=== PATIENT | male | born 1945 | race Caucasian/White ===

== ENCOUNTER 2020-05-31 21:26 | IRF | payer MEDICARE, SELFPAY ==
--- NOTE | ~2020-05-31 | XR_ITS ---
EXAMINATION: 1. XR ankle RT 2V 2. XR heel RT min 2V DATE: 06/04/2020 14:19 INDICATION: Right heel and ankle pain. TECHNIQUE: 2 views of right ankle and 2 views of right calcaneus were obtained. COMPARISON: None. FINDINGS: RIGHT ANKLE: Bone alignment is normal. No acute fracture. There is a fragment of well corticated ossi fication distal to lateral malleolus. There is ankylosis of the tibiotalar joint. There is bridging b one at the distal tibiofibular syndesmosis. There is an old screw tract in the calcaneus. There is mi ld midfoot osteoarthritis. There is mild subtalar joint osteoarthritis. There are enthesophytes at th e posterior and plantar aspects of calcaneal tuberosity. RIGHT CALCANEUS: Again seen is the mild polyarticular osteoarthritis. There is no fracture. There is no evidence of osteomyelitis. IMPRESSION: 1. Mild polyarticular osteoarthritis. 2. Ankylosis of the tibiotalar joint. Bridging bone at the distal tibiofibular syndesmosis. Reviewed, dictated and finalized at location B. ENTARY SCHOOL PROFESSIONAL IMPRESSION: 1. Mild polyarticular osteoarthritis. 2. Ankylosis of the tibiotalar joint. Bridging bone at the distal tibiofibular syndesmosis.
--- NOTE | 2020-05-31 19:07 | ADMGEN ---
This patient, Javier Collins, [facility]. Patient/family oriented to hospital policies and general routines including ID bracelet, bed and alarms, visiting hours, pain management, procedures, bathroom and other care routines, personal items, smoking policy, room service/diet, and visiting hours. Information on how to activate the Rapid Response Team has been discussed. Patient/Family are encouraged to report perceived risks to care and to ask questions if they do not understand what they are told or what they should do. Patient arrived at 1850. transported via [facility], per EMS he was stable on the ride. Patient is alert and oriented, incontinent of stool upon arrival
[2020-05-31 19:27] VITALS: BP 132/65; PULSE 103; RESP 20; TEMP 36.6; O2SAT 94
[2020-05-31 19:28] VITALS: BMI 31.8
[2020-05-31 22:00] VITALS: BP 140/60; PULSE 100; RESP 18; TEMP 36.7; O2SAT 95
[2020-05-31] MEDS: CARBIDOPA/LEVODOPA 25/100 MG TABLET 2 TABLET PO (22:42)
[2020-05-31] MEDS: APIXABAN 5 MG TABLET PO (22:42)
[2020-05-31] MEDS: PRAVASTATIN SODIUM 20 MG TABLET PO (22:43)
[2020-05-31] MEDS: PRAMIPEXOLE 0.5 MG TABLET PO (22:47)
[2020-05-31] MEDS: DONEPEZIL HCL 10 MG TABLET PO (22:48)
[2020-05-31] MEDS: PRAMIPEXOLE 0.25 MG TABLET PO (22:48)
[2020-06-01] MEDS: ACETAMINOPHEN 500 MG TABLET 1000 MG PO ×3 (01:01→15:34)
[2020-06-01 04:57] LABS: Basophils Percent Auto 0.3 % (0.2-1.2); Eosinophils Absolute Auto 0.1 K/mm3 (0-0.3); Eosinophils Percent Auto 1.1 % (0-4.4); Hematocrit 26.5 % (42.0-52.0); Hemoglobin 8.4 g/dL (14.0-18.0); Immature Granulocyte Absolute 0.05 K/mm3 (0.00-0.031); Immature Granulocyte Percent A 0.7 % (0-0.5); Lymphocytes Absolute Auto 1.13 K/mm3 (0.9-3.2); Lymphocytes Percent Auto 16.2 % (18.3-44.2); Mean Corpuscular HGB Conc 31.7 g/dl (32-36); Mean Corpuscular Hemoglobin 30.8 pg (26-34); Mean Corpuscular Volume 97.1 fl (80-100); Monocytes Absolute Auto 0.7 K/mm3 (0.1-0.6); Monocytes Percent Auto 10.5 % (2.6-8.5); Neutrophils Percent Auto 71.2 % (45.5-73.1); Nucleated Red Blood Cells Perc 0.3 % (0.0-0.2); Platelet Count Result 206 k/mm3 (150-375); Red Blood Count 2.73 M/mm3 (4.6-6.20); Red Cell Distribution Width 14.2 % (11.5-14.5)
[2020-06-01 05:15] LABS: Anion Gap 4 mmol/L (8-16); Blood Urea Nitrogen 20 mg/dL (9-20); Calcium 8.5 mg/dL (8.4-10.2); Carbon Dioxide 33 mmol/L (22-30); Chloride 102 mmol/L (98-107); Estimated CRCL calculation 67 ml/min; Estimated Glomerular Filt Rate > 60; Glucose 86 mg/dL (75-110); Potassium 3.5 mmol/L (3.4-5.0); Sodium 139 mmol/L (137-145)
[2020-06-01 05:51] VITALS: PULSE 75; RESP 16; TEMP 36.3; O2SAT 95
[2020-06-01] MEDS: PROPRANOLOL HCL 60 MG CAPSULE CR 120 MG PO (09:06)
[2020-06-01] MEDS: CARBIDOPA/LEVODOPA 25/100 MG TABLET 2 TABLET PO ×3 (09:07→17:34)
[2020-06-01] MEDS: PARoxetine 20 MG TABLET 40 MG PO (09:08)
[2020-06-01] MEDS: APIXABAN 5 MG TABLET PO ×2 (09:08→17:34)
[2020-06-01] MEDS: buPROPion HCL XL (24 HR) 150 MG TABCR 300 MG PO (09:09)
[2020-06-01] MEDS: lamoTRIgine 100 MG TABLET 200 MG PO (09:10)
[2020-06-01] MEDS: SOLIFENACIN 5 MG TABLET 10 MG PO (09:10)
[2020-06-01] MEDS: CHOLECALCIFEROL 1,000 UNITS TABLET 5000 UNITS PO (09:11)
[2020-06-01] MEDS: polyethylene glycoL 3350 17 GM POWD.PACK PO (09:12)
[2020-06-01] MEDS: modafiniL (*CRX) 100 MG TABLET PO (09:24)
--- NOTE | 2020-06-01 10:22 | WPDREHABHP ---
H&P: HPI History of Present Illness Date/Time: 06/01/20 10:22 Chief complaint: ORIF left leg Narrative: Javier Collins is a 75 year old male HISTORY OF PRESENT ILLNESS: The patient's primary rehab impairment category is Orthopedic that is lower extremity fracture I saw this patient [id number] on June 01, 2020 at 10:00 a.m. The patient is a 75 years old right-handed male with a past medical history of anxiety, arthritis, atrial fibrillation on Eliquis, Parkinson disease, ataxic gait, urinary incontinence and bilateral total knee arthroplasties who presented to [facility] on May 24, 2020 following a mechanical single level fall. The patient reports that he tripped over the vacuum cord and landed on his left knee. The patient initially received imaging at [facility], which demonstrated a left distal femur fracture and the patient was transferred to [facility] for definitive care and medical management . at [facility] Emergency room a CT scan of the left knee revealed a mildly displaced and angulated left distal femur shaft fracture, fracture line in close proximity to the anterior superior margin of the left knee arthroplasty. Head CT scan revealed no acute intracranial hemorrhage or fractures. Orthopedic Trauma surgery was consulted and the patient underwent surgical intervention of a a retrograde intramedullary femur nailing and an ORIF of distal femur on May 24, 2020. The patient required transfusion of 3units packed RBCs intraoperatively and was started on meds,had 1L bolus, 1unit of packed RBCs with no affect on blood pressure on 05/27 ECho showed EF 55 to 60% ,on 05/27, the patient was taken off the drip and on 05/28 the patient hemoglobin dropped to 7.1 from 8.9. He was again given 1unit of packed RBCs the patient blood pressure has remained stable since 05/28 with no bolus or blood products required. He is hemodynamically stable. Patient is awake alert oriented x3 he He is weight-bearing at touch toe to left lower extremity. [place] and sutures to be removed 3 weeks postoperatively at the rehab facility or as an outpatient. He will discharged to [facility] on Eliquis for long-term atrial fibrillation. He is also on Rocephin IV until 06/01. Follow-up is scheduled with Dr. Claudio on July 06, 2019 COVID: the patient has not traveled outside the [place] or had contact with someone who is ill that has traveled outside the [place] in the past 21 days the patient has not traveled to an area of the [place] that is experiencing known transmission of the Coronavirus and has not had close personal contact with anyone that has the patient does not have a fever the patient is not experiencing lower respiratory illness symptom patient does however has asthma at baseline. Therapy was initiated the acute care facility and the patient was transferred to us from [facility] on May 31, 2020 FALLS OR SURGERIES: the patient has had major surgery in the last 100 days( ORIF and IM nailing of left distal femur on May 24, 2020) the patient has had falls in the past year. The patient has had falls with injury in the past year. PAST MEDICAL HISTORY: anxiety, arthritis, asthma, ataxic gait, atrial fibrillation, depression, thyroid disease, back injury, hypertension, hyperlipidemia, hypothyroidism, overactive bladder, urinary incontinence, Parkinson disease, mild tremors, right lower extremity fracture, right ankle fracture, lumbar disc rupture, non rheumatic aortic valve stenosis, REM sleep behavior disorder, CVA, and DVT. PAST SURGICAL HISTORY: Bilateral total knee arthroplasties, right ankle surgery, cholecystectomy, and lumbar disc rupture with surgical repair SOCIAL HISTORY: the patient lives with spouse in a one-story home with 2 steps to enter. He was independent in all ADLS, IADLS, and mobility with a walker. The patient is a former smoker approximately 40 ye
[2020-06-01 12:35] VITALS: BMI 31.8
[2020-06-01 14:00] VITALS: BP 126/64; PULSE 77; RESP 22; TEMP 36; O2SAT 98
--- NOTE | 2020-06-01 15:50 | PCPTNOTE ---
Javier Rubi Collins was evaluated for a wheeled walker on 06/01/2020 by this physical therapist internal medicine physician assistant. The wheeled walker will resolve patient's mobility limitations and will be used for ADL's within the home. The patient can safely use the wheeled walker. ?The wheeled walker will resolve the patient?s mobility deficits, including impaired balance, decreased endurance and strength..
--- NOTE | 2020-06-01 15:51 | PCPTNOTE ---
Breonna Reinoso PTA completed an inpatient rehab wheelchair evaluation on Javier Collins on 06/01/2020. The patient is unable to safely and independently ambulate household distances due to their current impairments. Their diagnosis is ORIF left leg and their impairments include decreased strength, decreased endurance, decreased range of motion, decreased balance, lower extremity weakness, and ataxia. Javier's weight bearing status is weight-bearing as tolerated on the bilateral lower legs. The patient demonstrates significant functional mobility limitations that impair their ability to participate in mobility-related activities of daily living (MRADLs), including toileting, feeding, dressing, grooming, and bathing in the customary locations in the home. These limitations cannot be sufficiently resolved by the use of an appropriately fitted cane or walker. It is recommended that the patient utilize a wheelchair for functional mobility within the home in order to facilitate optimal safety, independence and participation in all MRADL's and adequately access their home environment on a regular basis. The patient's home provides adequate access between rooms, maneuvering space, and surfaces to accommodate the recommended wheelchair. The use of a wheelchair for functional mobility is strongly recommended and the patient is receptive to using the wheelchair. The use of this wheelchair will significantly improve the patient's ability to participate in MRADLS and the patient will use it on a regular basis in the home. This will facilitate optimal safety, independence, and participation. The patient has demonstrated sufficient physical and mental capabilities needed to safely propel a manual wheelchair that is provided in the home during a typical day. Recommended Wheelchair Frame: 20x18 Recommended Wheelchair Size: standard Recommended Wheelchair Cushion:standard Wheelchair Leg Recommendations: bilateral elevating leg rests - Elevating legrests are recommended because the patient has significant edema of the lower extremities that requires an elevating legrest. - Anti-tippers are recommended due to patient demonstrating increased risk for falls. They would benefit from anti-tippers with added safety and stabilization. Breonna Reinoso [employer]ANT OPERATOR 06-01-2020 Evaluating Therapist Date I agree with and certify that the above recommendation is medically necessary. Referring Physician Date I agree with and certify that the above recommendation is medically necessary. Referring Physician Date
[2020-06-01 20:09] VITALS: BP 107/51; PULSE 74; RESP 18; TEMP 35.9; O2SAT 99
[2020-06-01] MEDS: DONEPEZIL HCL 10 MG TABLET PO (20:58)
[2020-06-01] MEDS: SENNA/DOCUSATE SODIUM TABLET 1 TAB PO (20:58)
[2020-06-01] MEDS: PRAMIPEXOLE 0.5 MG TABLET PO (20:59)
[2020-06-01] MEDS: PRAVASTATIN SODIUM 20 MG TABLET PO (21:00)
[2020-06-01] MEDS: PRAMIPEXOLE 0.25 MG TABLET PO (21:00)
[2020-06-02] MEDS: ACETAMINOPHEN 500 MG TABLET 1000 MG PO ×4 (00:15→17:14)
[2020-06-02 05:46] VITALS: BP 121/64; PULSE 80; RESP 18; TEMP 36.2; O2SAT 94
[2020-06-02] MEDS: LEVOTHYROXINE SODIUM 50 MCG TABLET PO (05:57)
[2020-06-02] MEDS: SOLIFENACIN 5 MG TABLET 10 MG PO (09:04)
[2020-06-02] MEDS: PROPRANOLOL HCL 60 MG CAPSULE CR 120 MG PO (09:04)
[2020-06-02] MEDS: lamoTRIgine 100 MG TABLET 200 MG PO (09:04)
[2020-06-02] MEDS: CHOLECALCIFEROL 1,000 UNITS TABLET 5000 UNITS PO (09:04)
[2020-06-02] MEDS: APIXABAN 5 MG TABLET PO ×2 (09:05→17:14)
[2020-06-02] MEDS: buPROPion HCL XL (24 HR) 150 MG TABCR 300 MG PO (09:05)
[2020-06-02] MEDS: CARBIDOPA/LEVODOPA 25/100 MG TABLET 2 TABLET PO ×3 (09:05→17:14)
[2020-06-02] MEDS: PARoxetine 20 MG TABLET 40 MG PO (09:05)
[2020-06-02] MEDS: modafiniL (*CRX) 100 MG TABLET PO (09:25)
--- NOTE | 2020-06-02 11:58 | RPD ---
INDIVIDUALIZED PLAN OF CARE FOR Javier Collins Brief Synthesis of Pre-Admission Screen, Post-Admission Evaluation and Therapy Evaluations: The patient presents to rehab with a displaced and angulated extra-articular left distal femoral metadiaphyseal fracture s/p left ORIF and retrograde left intramedullary femur nailing. Comorbidities include associated left knee joint effusion, anxiety, arthritis, asthma, ataxic gait, atrial fibrillation, mild tremors, hypertension, hyperlipidemia, hypothyroidism, overactive bladder, urinary incontinence, nonrheumatic aortic valve stenosis, REM sleep behavior disorder, and Parkinson's disease. The complexity of the patient's medical management, nursing, and therapy needs require an inpatient rehab hospital stay with a physician-led interdisciplinary team approach. The patient?s needs will be best met in an intensive program vs. at a lower level of care. The patient requires physician services for medical oversight, management of postop complications in setting of present comorbidities, and pain management. He will be followed at least three times a week by the rehabilitation physician. The patient requires nursing services for DVT prophylactics, infection protection, medication management and education, pressure relief, and wound care. Deficits include:ADLs, Balance, Cognition, Endurance, Family Training/Education, Mobility, Pain Management, ROM, Safety, Strength, Transfers Brim Rounder/Case Management for: Discharge Planning and Patient/Family Counseling Physical Therapy: 5 days per week for 90 minutes. Treatments may include: Therapeutic Exercise, Gait Training, Neuromuscular Re-education, Transfer Training, Community Reintegration, Bed Mobility, Patient/Family Education, Wheelchair Mobility Group Therapy/Concurrent Therapy Rationales: -Improve attention span during functional activities in a distracted environment. -Enhance problem solving and/or adequate judgment skills during functional activities in a distracted environment. -Promote increased safety awareness in a distracted environment to reduce fall risk with functional tasks, transfers, and ambulation to allow a more safe, self-sufficient return to the home environment. -Improve dynamic balance skills to promote safety and independence with functional activities in a distracted environment for maximum gain. Occupational Therapy: 5 days per week for 90 minutes. Treatments may include: Therapeutic Exercise, Therapeutic Activity, Cognitive Training, Self-Care Transfer Training, Community Reintegration, Home Management, Patient/Family Education, Wheelchair Mobility Training, Energy Conservation Training Group Therapy/Concurrent Therapy Rationales: -Allow therapist to observe and teach generalization and carry-over of skills learned in individual therapy. -Enhance problem solving and sequencing skills during therapeutic activities in a distracted environment. -Promote increased safety awareness in a realistic setting to reduce fall risk with functional tasks due to visual and verbal distractions. -Increase functional level with ADLs, ADL transfers and use of adaptive equipment through therapeutic activities with others while promoting safety to allow a more safe, self-sufficient return home. Medical Prognosis: Good Anticipated Length of Stay: 10 days Rehab Goals: Eating Goal: 06-Independent Oral Hygiene Goal: 06-Independent Toileting Hygiene Goal: 04-Supervision or Touching Assistance Shower/Bathe Self Goal: 04-Supervision or Touching Assistance Upper Body Dressing Goal: 04-Supervision or Touching Assistance Lower Body Dressing Goal: 04-Supervision or Touching Assistance Putting On/Taking Off Footwear Goal: 04-Supervision or Touching Assistance Rolling Left and Right Goal: 06-Independent Sit to Lying Goal: 06-Independent Lying to Sitting on Side of Bed Goal: 06-Independent Sit to Stand Goal: 04-Supervision or Touching Assistance Chair/Bru-hz-Csrom Transfer Phoebe
--- NOTE | 2020-06-02 13:49 | PC.NURSE ---
complaints of left knee pain at old surgical site, reports pain assessment 4 out of 10. provided ice pack to left knee
[2020-06-02 14:00] VITALS: BP 105/60; PULSE 81; RESP 16; TEMP 36; O2SAT 95
[2020-06-02 19:48] VITALS: BP 90/54; PULSE 84; RESP 20; TEMP 36.7; O2SAT 96
[2020-06-02 19:55] VITALS: BP 102/58
[2020-06-02] MEDS: DONEPEZIL HCL 10 MG TABLET PO (19:59)
[2020-06-02] MEDS: PRAMIPEXOLE 0.5 MG TABLET PO (19:59)
[2020-06-02] MEDS: PRAMIPEXOLE 0.25 MG TABLET PO (20:00)
[2020-06-02] MEDS: PRAVASTATIN SODIUM 20 MG TABLET PO (20:00)
[2020-06-03 06:03] VITALS: BP 124/52; PULSE 69; RESP 16; TEMP 36.7; O2SAT 95
[2020-06-03] MEDS: LEVOTHYROXINE SODIUM 50 MCG TABLET PO (06:05)
[2020-06-03] MEDS: ACETAMINOPHEN 500 MG TABLET 1000 MG PO ×3 (06:05→17:27)
[2020-06-03 08:00] VITALS: PULSE 69; RESP 16; O2SAT 95
[2020-06-03] MEDS: CARBIDOPA/LEVODOPA 25/100 MG TABLET 2 TABLET PO ×3 (09:27→17:28)
[2020-06-03 09:28] VITALS: PULSE 69
[2020-06-03] MEDS: PROPRANOLOL HCL 60 MG CAPSULE CR 120 MG PO (09:28)
[2020-06-03] MEDS: APIXABAN 5 MG TABLET PO ×2 (09:28→17:28)
[2020-06-03] MEDS: CHOLECALCIFEROL 1,000 UNITS TABLET 5000 UNITS PO (09:28)
[2020-06-03] MEDS: PARoxetine 20 MG TABLET 40 MG PO (09:28)
[2020-06-03] MEDS: SOLIFENACIN 5 MG TABLET 10 MG PO (09:28)
[2020-06-03] MEDS: buPROPion HCL XL (24 HR) 150 MG TABCR 300 MG PO (09:29)
[2020-06-03] MEDS: lamoTRIgine 100 MG TABLET 200 MG PO (09:29)
[2020-06-03] MEDS: polyethylene glycoL 3350 17 GM POWD.PACK PO (09:29)
[2020-06-03] MEDS: modafiniL (*CRX) 100 MG TABLET PO (09:34)
--- NOTE | 2020-06-03 10:04 | PC.NURSE ---
0900---Attempted to give patient his 0900 meds and patient did not want to take meds at this time. Will try again later.
[2020-06-03 14:00] VITALS: BP 130/57; PULSE 74; RESP 18; TEMP 36.2; O2SAT 97
[2020-06-03] MEDS: DONEPEZIL HCL 10 MG TABLET PO (20:32)
[2020-06-03] MEDS: PRAMIPEXOLE 0.25 MG TABLET PO (20:32)
[2020-06-03] MEDS: PRAVASTATIN SODIUM 20 MG TABLET PO (20:32)
[2020-06-03] MEDS: PRAMIPEXOLE 0.5 MG TABLET PO (20:33)
[2020-06-03 22:00] VITALS: BP 100/46; PULSE 76; RESP 18; TEMP 36.9; O2SAT 96
[2020-06-04] MEDS: ACETAMINOPHEN 500 MG TABLET 1000 MG PO ×3 (05:56→17:35)
[2020-06-04] MEDS: LEVOTHYROXINE SODIUM 50 MCG TABLET PO (05:57)
[2020-06-04 06:00] VITALS: BP 131/72; PULSE 77; RESP 20; TEMP 36.6; O2SAT 97
[2020-06-04] MEDS: SOLIFENACIN 5 MG TABLET 10 MG PO (09:23)
[2020-06-04] MEDS: PARoxetine 20 MG TABLET 40 MG PO (09:23)
[2020-06-04] MEDS: lamoTRIgine 100 MG TABLET 200 MG PO (09:23)
[2020-06-04] MEDS: CARBIDOPA/LEVODOPA 25/100 MG TABLET 2 TABLET PO ×3 (09:24→17:30)
[2020-06-04] MEDS: buPROPion HCL XL (24 HR) 150 MG TABCR 300 MG PO (09:24)
[2020-06-04] MEDS: APIXABAN 5 MG TABLET PO ×2 (09:24→17:35)
[2020-06-04] MEDS: CHOLECALCIFEROL 1,000 UNITS TABLET 5000 UNITS PO (09:24)
[2020-06-04] MEDS: PROPRANOLOL HCL 60 MG CAPSULE CR 120 MG PO (09:24)
[2020-06-04] MEDS: modafiniL (*CRX) 100 MG TABLET PO (09:51)
--- NOTE | 2020-06-04 10:45 | WPDNEURORHBP ---
Subjective Date/time seen: 06/04/20 10:45 75 years old with left knee displaced angulated left distal femur shaft fracture closer to the anterior superior margin of the left knee arthroplasty in addition to ongoing comorbid conditions of 1. Anxiety 2. Arthritis 3. Bronchial asthma 4. Atrial fibrillation 5. Hyper 6. Hypothyroidism 7. Bladder dysfunction 8. Parkinson's disease 9. Non rheumatic aortic valve stenosis and 10. REM sleep behavior disorder has been involved in a therapy has no specific complaints on today's visit Review of Systems Review of Systems: All systems reviewed & are unremarkable except as noted in HPI and below Functional Status Ambulation Ability Ability to Ambulate 10 Feet: Moderate Assistance X 1 Ambulation Assistive Devices: Walker, Wheeled Exam Narrative: Exam Narrative: continues to be awake alert in no obvious acute distress ear nose throat examination normal with normal mucous membranes neck is supple with no restriction of the range of motions heart is regular lungs without rhonchi abdomen is soft nontender and neuro examination unchanged he will be continue the treatment as such Objective Data Vital Signs Vital Signs: Vital Signs - 24 hr 06/03/20 14:00 06/03/20 22:00 06/04/20 06:00 Temperature 36.2 C L 36.9 C 36.6 C Pulse Rate 74 76 77 Respiratory Rate 18 18 20 Blood Pressure 130/57 L 100/46 L 131/72 Pulse Oximetry 97 96 97 Intake/Output Intake/Output: Intake & Output 06/01/20 06/02/20 06/03/20 06/04/20 23:59 23:59 23:59 23:59 Intake Total 450 580 240 240 Balance 450 580 240 240 Meds/Results Medications: Active Medications Generic Name Dose Route Start Last Admin Trade Name Ti PRN Reason Stop Dose Admin Acetaminophen 1,000 mg 06/01/20 18:00 06/04/20 05:56 Acetaminophen 500 Mg Tablet PO 1,000 mg Q6HR MILTON Administration Apixaban 5 mg 05/31/20 21:40 06/04/20 09:24 Apixaban 5 Mg Tablet PO 5 mg BID MILTON Administration Bupropion HCl 300 mg 06/01/20 09:00 06/04/20 09:24 Bupropion Hcl Xl (24 Hr) 150 Mg Tabcr PO 300 mg QAM MILTON Administration Carbidopa/Levodopa 2 tablet 05/31/20 21:40 06/04/20 09:24 Carbidopa/Levodopa 25/100 Mg Tablet PO 2 tablet TID MILTON Administration Donepezil HCl 10 mg 05/31/20 21:45 06/03/20 20:32 Donepezil Hcl 10 Mg Tablet PO 10 mg HS MILTON Administration Lamotrigine 200 mg 06/01/20 09:00 12 09:23 Lamotrigine 100 Mg Tablet PO 200 mg DAILY MILTON Administration Levothyroxine Sodium 50 mcg 06/01/20 06:30 06/04/20 05:57 Levothyroxine Sodium 50 Mcg Tablet PO 50 mcg DAILY@0630 MILTON Administration Modafinil 100 mg 06/01/20 09:00 12 09:51 Modafinil (*Crx) 100 Mg Tablet PO 100 mg QAM MILTON Administration Oxycodone HCl 1 mg 05/31/20 21:30 Oxycodone Hcl (*Crx) 5 Mg Tab Ir PO Q6H PRN Pain Rated 7-10 Paroxetine HCl 40 mg 06/01/20 09:00 06/04/20 09:23 Paroxetine 20 Mg Tablet PO 40 mg QAM [place] Administration Polyethylene Glycol 17 gm 06/04/20 10:37 Polyethylene Glycol 3350 17 Gm Powd.Pack PO DAILY PRN Constipation Pramipexole Dihydrochloride 0.5 mg 05/31/20 21:45 06/03/20 20:33 Pramipexole 0.5 Mg Tablet PO 0.5 mg HS MILTON Administration Pramipexole Dihydrochloride 0.25 mg 05/31/20 21:50 06/03/20 20:32 Pramipexole 0.25 Mg Tablet PO 0.25 mg HS MILTON Administration Pravastatin Sodium 20 mg 05/31/20 21:45 06/03/20 20:32 Pravastatin Sodium 20 Mg Tablet PO 20 mg HS MILTON Administration Propranolol HCl 120 mg 06/01/20 09:00 06/04/20 09:24 Propranolol Hcl 60 Mg Capsule Cr PO 120 mg DAILY MILTON Administration Senna/Docusate Sodium 1 tab 06/01/20 21:00 06/03/20 20:33 Senna/Docusate Sodium Tablet PO Not Given HS MILTON Solifenacin 10 mg 06/01/20 09:00 06/04/20 09:23 Solifenacin 5 Mg Tablet PO 10 mg QAM MILTON Administration Vitamin D 5,000 units 12/08/20 09:00 06/04/20 09:24 Leonora
--- NOTE | 2020-06-04 12:55 | PCDIET ---
Nutrition Follow-Up Complete: Nutrition Diagnosis: Suboptimal oral intake related to decreased appetite as evidenced by intake records. Nutrition Goal: Patient to consume 50% of meals and supplements or greater Goal in progress. Patient does report improving appetite, but intakes remain 50% or less at meals. Patient does report taking Ensure Enlive twice daily which provides additional 700kcal and 40g protein per day. Encouraged patient to continue to focus on protein and supplement intake. Recommend regular, unrestricted diet, as well, to potentially boost intake. Last recorded weight is 84.3 kg. Recommend obtaining new weight. Bowel Motility: +BM today. Labs Reviewed: No new labs available. Meds Noted: Sinemet, Synthroid, Pravastatin, Senna, Vitamin D Additional Notes: Dressing to left hip. No documented pressure sores. Will continue to monitor with same goal. Nutrition Monitoring and Evaluation: Follow up in 5 days.
[2020-06-04 14:00] VITALS: BP 110/46; PULSE 60; RESP 18; TEMP 36.1; O2SAT 97
[2020-06-04 20:45] VITALS: PULSE 73; RESP 18; O2SAT 97
[2020-06-04 21:02] VITALS: BP 113/57; PULSE 73; RESP 18; TEMP 36.3; O2SAT 97
[2020-06-04 21:04] VITALS: BP 113/57; PULSE 73; RESP 18; TEMP 36.3; O2SAT 97
[2020-06-04] MEDS: PRAMIPEXOLE 0.25 MG TABLET PO (21:08)
[2020-06-04] MEDS: PRAVASTATIN SODIUM 20 MG TABLET PO (21:08)
[2020-06-04] MEDS: DONEPEZIL HCL 10 MG TABLET PO (21:08)
[2020-06-04] MEDS: PRAMIPEXOLE 0.5 MG TABLET PO (21:08)
[2020-06-04] MEDS: SENNA/DOCUSATE SODIUM TABLET 1 TAB PO (21:08)
[2020-06-05] MEDS: ACETAMINOPHEN 500 MG TABLET 1000 MG PO ×4 (00:08→17:05)
[2020-06-05 05:31] VITALS: BP 117/66; PULSE 75; RESP 18; TEMP 36; O2SAT 96
[2020-06-05] MEDS: LEVOTHYROXINE SODIUM 50 MCG TABLET PO (05:36)
[2020-06-05] MEDS: APIXABAN 5 MG TABLET PO ×2 (10:01→17:05)
[2020-06-05] MEDS: CHOLECALCIFEROL 1,000 UNITS TABLET 5000 UNITS PO (10:01)
[2020-06-05] MEDS: CARBIDOPA/LEVODOPA 25/100 MG TABLET 2 TABLET PO ×3 (10:01→17:05)
[2020-06-05] MEDS: buPROPion HCL XL (24 HR) 150 MG TABCR 300 MG PO (10:02)
[2020-06-05] MEDS: lamoTRIgine 100 MG TABLET 200 MG PO (10:02)
[2020-06-05] MEDS: PARoxetine 20 MG TABLET 40 MG PO (10:03)
[2020-06-05] MEDS: SOLIFENACIN 5 MG TABLET 10 MG PO (10:03)
[2020-06-05 10:10] VITALS: PULSE 75
[2020-06-05] MEDS: modafiniL (*CRX) 100 MG TABLET PO (10:10)
[2020-06-05] MEDS: PROPRANOLOL HCL 60 MG CAPSULE CR 120 MG PO (10:10)
--- NOTE | 2020-06-05 12:23 | WPDNEUROPN ---
Progress Note: A&P Assessment and Plan (1) Anticoagulation therapy continued upon discharge: Code(s): Z79.01 - vermin exterminator (current) use of anticoagulants Status: Acute (2) Anemia: Code(s): D64.9 - Anemia, unspecified Status: Acute (3) Bladder dysfunction: Code(s): N31.9 - Neuromuscular dysfunction of bladder, unspecified Status: Acute (4) Ataxia: Code(s): R27.0 - Ataxia, unspecified Status: Acute (5) Parkinsons disease: Code(s): G20 - Parkinson's disease Status: Acute (6) Arthritis: Code(s): M19.90 - Unspecified osteoarthritis, unspecified site Status: Acute (7) Atrial fibrillation: Code(s): I48.91 - Unspecified atrial fibrillation Status: Acute (8) Anxiety: Code(s): F41.9 - Anxiety disorder, unspecified Status: Acute (9) Closed fracture of left distal femur: Code(s): S72.402A - Unspecified fracture of lower end of left femur, initial encounter for closed fracture Status: Acute Additional Plan stable will continue the treatment as such Review of Systems Review of Systems: All systems reviewed & are unremarkable except as noted in HPI and below Exam Narrative: Exam Narrative: examination today reveals him to be awake alert very cooperative and also communicative. His speech is not dysphasic not dysarthric. Follows instructions very well and interested in the rehab therapy the cranial examination is normal. Motor examination revealed him to have mild cogwheeling very subtle resting tremors but able to ambulate fairly well, heart regular with no murmur,. Lungs clear to auscultation with no rhonchi, or crepitation, abdomen is soft nontender. Objective Data Vital Signs Vital Signs: Vital Signs - 24 hr 06/04/20 14:00 06/04/20 20:45 06/04/20 21:02 Temperature 36.1 C L 36.3 C L Pulse Rate 60 73 73 Respiratory Rate 18 18 18 Blood Pressure 110/46 L 113/57 L Pulse Oximetry 97 97 97 06/04/20 21:04 06/05/20 05:31 06/05/20 10:10 Temperature 36.3 C L 36.0 C L Pulse Rate 73 75 75 Respiratory Rate 18 18 Blood Pressure 113/57 L 117/66 Pulse Oximetry 97 96 Intake/Output Intake/Output: Intake & Output 06/02/20 06/03/20 06/04/20 06/05/20 23:59 23:59 23:59 23:59 Intake Total 580 240 720 240 Balance 580 240 720 240 Meds/Results Medications: Active Medications Generic Name Dose Route Start Last Admin Trade Name Freq PRN Reason Stop Dose Admin Acetaminophen 1,000 mg 06/01/20 18:00 06/05/20 05:36 Acetaminophen 500 Mg Tablet PO 1,000 mg Q6HR [place] Administration Apixaban 5 mg 05/31/20 21:40 06/05/20 10:01 Apixaban 5 Mg Tablet PO 5 mg BID MILTON Administration Bupropion HCl 300 mg 06/01/20 09:00 06/05/20 10:02 Bupropion Hcl Xl (24 Hr) 150 Mg Tabcr PO 300 mg QAM [place] Administration Carbidopa/Levodopa 2 tablet 05/31/20 21:40 06/05/20 10:01 Carbidopa/Levodopa 25/100 Mg Tablet PO 2 tablet TID MILTON Administration Donepezil HCl 10 mg 05/31/20 21:45 06/04/20 21:08 Donepezil Hcl 10 Mg Tablet PO 10 mg HS MILTON Administration Lamotrigine 200 mg 06/01/20 09:00 06/05/20 10:02 Lamotrigine 100 Mg Tablet PO 200 mg DAILY MILTON Administration Levothyroxine Sodium 50 mcg 06/01/20 06:30 06/05/20 05:36 Levothyroxine Sodium 50 Mcg Tablet PO 50 mcg DAILY@0630 MILTON Administration Modafinil 100 mg 06/01/20 09:00 06/05/20 10:10 Modafinil (*Crx) 100 Mg Tablet PO 100 mg QAM [place] Administration Oxycodone HCl 1 mg 05/31/20 21:30 Oxycodone Hcl (*Crx) 5 Mg Tab Ir PO Q6H PRN Pain Rated 7-10 Paroxetine HCl 40 mg 06/01/20 09:00 06/05/20 10:03 Paroxetine 20 Mg Tablet PO 40 mg QAM [place] Administration Polyethylene Glycol 17 gm 06/04/20 10:37 Polyethylene Glycol 3350 17 Gm Powd.Pack PO DAILY PRN Constipation Pramipexole Dihydrochloride 0.5 mg 05/31/20 21:45 06/04/20 21:08 Pramipexole 0.5
[2020-06-05 14:00] VITALS: BP 108/54; PULSE 65; RESP 20; TEMP 35.8; O2SAT 96
[2020-06-05] MEDS: PRAMIPEXOLE 0.5 MG TABLET PO (20:29)
[2020-06-05] MEDS: SENNA/DOCUSATE SODIUM TABLET 1 TAB PO (20:29)
[2020-06-05] MEDS: PRAMIPEXOLE 0.25 MG TABLET PO (20:29)
[2020-06-05] MEDS: DONEPEZIL HCL 10 MG TABLET PO (20:29)
[2020-06-05] MEDS: PRAVASTATIN SODIUM 20 MG TABLET PO (20:29)
[2020-06-05 20:40] VITALS: PULSE 65; RESP 20; O2SAT 96
[2020-06-05 22:00] VITALS: BP 101/54; PULSE 72; RESP 20; TEMP 36.2; O2SAT 98
[2020-06-06] MEDS: ACETAMINOPHEN 500 MG TABLET 1000 MG PO ×4 (00:26→17:07)
[2020-06-06 06:00] VITALS: BP 145/62; PULSE 70; RESP 16; TEMP 36.7; O2SAT 97
[2020-06-06] MEDS: LEVOTHYROXINE SODIUM 50 MCG TABLET PO (06:42)
[2020-06-06 08:00] VITALS: PULSE 70; RESP 16; O2SAT 97
[2020-06-06] MEDS: PARoxetine 20 MG TABLET 40 MG PO (09:10)
[2020-06-06] MEDS: buPROPion HCL XL (24 HR) 150 MG TABCR 300 MG PO (09:10)
[2020-06-06] MEDS: CHOLECALCIFEROL 1,000 UNITS TABLET 5000 UNITS PO (09:10)
[2020-06-06] MEDS: lamoTRIgine 100 MG TABLET 200 MG PO (09:11)
[2020-06-06] MEDS: CARBIDOPA/LEVODOPA 25/100 MG TABLET 2 TABLET PO ×2 (09:11→17:07)
[2020-06-06] MEDS: SOLIFENACIN 5 MG TABLET 10 MG PO (09:11)
[2020-06-06] MEDS: APIXABAN 5 MG TABLET PO ×2 (09:12→17:07)
[2020-06-06 11:23] VITALS: PULSE 72
[2020-06-06] MEDS: PROPRANOLOL HCL 60 MG CAPSULE CR 120 MG PO (11:23)
[2020-06-06] MEDS: modafiniL (*CRX) 100 MG TABLET PO (11:26)
[2020-06-06] MEDS: polyethylene glycoL 3350 17 GM POWD.PACK PO (13:38)
[2020-06-06 14:00] VITALS: BP 124/59; PULSE 75; RESP 20; TEMP 35.9; O2SAT 100
[2020-06-06 20:00] VITALS: O2SAT 99
[2020-06-06] MEDS: DONEPEZIL HCL 10 MG TABLET PO (21:09)
[2020-06-06] MEDS: PRAVASTATIN SODIUM 20 MG TABLET PO (21:09)
[2020-06-06] MEDS: SENNA/DOCUSATE SODIUM TABLET 1 TAB PO (21:09)
[2020-06-06] MEDS: PRAMIPEXOLE 0.5 MG TABLET PO (21:09)
[2020-06-06] MEDS: PRAMIPEXOLE 0.25 MG TABLET PO (21:10)
[2020-06-06 21:42] VITALS: BP 123/88; PULSE 68; RESP 12; TEMP 36.8; O2SAT 99
[2020-06-07] MEDS: ACETAMINOPHEN 500 MG TABLET 1000 MG PO ×5 (01:00→23:18)
[2020-06-07 06:00] VITALS: BP 128/82; PULSE 71; RESP 12; TEMP 36.2; O2SAT 100
[2020-06-07] MEDS: LEVOTHYROXINE SODIUM 50 MCG TABLET PO (06:18)
[2020-06-07 08:00] VITALS: PULSE 88; RESP 12; O2SAT 100
[2020-06-07] MEDS: lamoTRIgine 100 MG TABLET 200 MG PO (08:40)
[2020-06-07] MEDS: buPROPion HCL XL (24 HR) 150 MG TABCR 300 MG PO (08:40)
[2020-06-07] MEDS: CARBIDOPA/LEVODOPA 25/100 MG TABLET 2 TABLET PO ×3 (08:40→16:54)
[2020-06-07] MEDS: CHOLECALCIFEROL 1,000 UNITS TABLET 5000 UNITS PO (08:40)
[2020-06-07 08:41] VITALS: PULSE 88
[2020-06-07] MEDS: SOLIFENACIN 5 MG TABLET 10 MG PO (08:41)
[2020-06-07] MEDS: PROPRANOLOL HCL 60 MG CAPSULE CR 120 MG PO (08:41)
[2020-06-07] MEDS: PARoxetine 20 MG TABLET 40 MG PO (08:41)
[2020-06-07] MEDS: APIXABAN 5 MG TABLET PO ×2 (08:42→16:54)
[2020-06-07] MEDS: modafiniL (*CRX) 100 MG TABLET PO (08:48)
--- NOTE | 2020-06-07 10:07 | WPDNEURORHBP ---
Subjective Date/time seen: 06/07/20 10:07 75 years old with left knee displaced angulated distal femur shaft fracture closed to the anterior superior margin of the left knee arthroplasty in addition to the ongoing multiple medical problem has been involved in the physical therapy and doing extremely well Review of Systems Review of Systems: All systems reviewed & are unremarkable except as noted in HPI and below Functional Status Ambulation Ability Ability to Ambulate 10 Feet: Minimum Assistance X 1 Ambulation Assistive Devices: Walker, Wheeled Exam Narrative: Exam Narrative: awake alert cooperative his speech nor dysphasic no dysarthric not dysphonic neck is supple heart regular it is clear abdomen is soft and neuro unchanged Objective Data Vital Signs Vital Signs: Vital Signs - 24 hr 06/06/20 11:23 06/06/20 14:00 06/06/20 20:00 Temperature 35.9 C L Pulse Rate 72 75 Respiratory Rate 20 Blood Pressure 124/59 L Pulse Oximetry 100 99 06/06/20 21:42 06/07/20 06:00 06/07/20 08:41 Temperature 36.8 C 36.2 C L Pulse Rate 68 71 88 Respiratory Rate 12 12 Blood Pressure 123/88 128/82 Pulse Oximetry 99 100 Intake/Output Intake/Output: Intake & Output 06/04/20 06/05/20 06/06/20 06/07/20 23:59 23:59 23:59 23:59 Intake Total 720 600 840 240 Balance 720 600 840 240 Meds/Results Medications: Active Medications Generic Name Dose Route Start Last Admin Trade Name Freq PRN Reason Stop Dose Admin Acetaminophen 1,000 mg 06/01/20 18:00 06/07/20 06:18 Acetaminophen 500 Mg Tablet PO 1,000 mg Q6HR [facility] Administration Apixaban 5 mg 05/31/20 21:40 06/07/20 08:42 Apixaban 5 Mg Tablet PO 5 mg BID [facility] Administration Bupropion HCl 300 mg 06/01/20 09:00 06/07/20 08:40 Bupropion Hcl Xl (24 Hr) 150 Mg Tabcr PO 300 mg QAM [facility] Administration Carbidopa/Levodopa 2 tablet 05/31/20 21:40 06/07/20 08:40 Carbidopa/Levodopa 25/100 Mg Tablet PO 2 tablet TID [facility] Administration Donepezil HCl 10 mg 05/31/20 21:45 06/06/20 21:09 Donepezil Hcl 10 Mg Tablet PO 10 mg HS [facility] Administration Lamotrigine 200 mg 06/01/20 09:00 06/07/20 08:40 Lamotrigine 100 Mg Tablet PO 200 mg DAILY [facility] Administration Levothyroxine Sodium 50 mcg 06/01/20 06:30 06/07/20 06:18 Levothyroxine Sodium 50 Mcg Tablet PO 50 mcg DAILY@0630 [facility] Administration Modafinil 100 mg 06/01/20 09:00 06/07/20 08:48 Modafinil (*Crx) 100 Mg Tablet PO 100 mg QAM [facility] Administration Oxycodone HCl 1 mg 05/31/20 21:30 Oxycodone Hcl (*Crx) 5 Mg Tab Ir PO Q6H PRN Pain Rated 7-10 Paroxetine HCl 40 mg 06/01/20 09:00 06/07/20 08:41 Paroxetine 20 Mg Tablet PO 40 mg QAM [facility] Administration Polyethylene Glycol 17 gm 06/04/20 10:37 06/06/20 13:38 Polyethylene Glycol 3350 17 Gm Powd.Pack PO 17 gm DAILY PRN Administration Constipation Pramipexole Dihydrochloride 0.5 mg 05/31/20 21:45 06/06/20 21:09 Pramipexole 0.5 Mg Tablet PO 0.5 mg HS [facility] Administration Pramipexole Dihydrochloride 0.25 mg 05/31/20 21:50 06/06/20 21:10 Pramipexole 0.25 Mg Tablet PO 0.25 mg HS [facility] Administration Pravastatin Sodium 20 mg 05/31/20 21:45 06/06/20 21:09 Pravastatin Sodium 20 Mg Tablet PO 20 mg HS [facility] Administration Propranolol HCl 120 mg 06/01/20 09:00 06/07/20 08:41 Propranolol Hcl 60 Mg Capsule Cr PO 120 mg DAILY [facility] Administration Senna/Docusate Sodium 1 tab 06/01/20 21:00 06/06/20 21:09 Senna/Docusate Sodium Tablet PO 1 tab HS [facility] Administration Solifenacin 10 mg 06/01/20 09:00 06/07/20 08:41 Solifenacin 5 Mg Tablet PO 10 mg QAM [facility] Administration Vitamin D 5,000 units 06/01/20 09:00 06/07/20 08:40 Cholecalciferol 1,000 Units Tablet PO 5,000 units DAILY [facility] Administration Radiology Results: ITS Impressions Ankle X-Ray 06/04/20 14:22 IMPRESSION: 1. Mild polyarticular osteoar
[2020-06-07 14:15] VITALS: BP 98/46; PULSE 73; RESP 18; TEMP 36.3; O2SAT 96
[2020-06-07] MEDS: PRAVASTATIN SODIUM 20 MG TABLET PO (20:46)
[2020-06-07] MEDS: DONEPEZIL HCL 10 MG TABLET PO (20:46)
[2020-06-07] MEDS: PRAMIPEXOLE 0.5 MG TABLET PO (20:46)
[2020-06-07] MEDS: PRAMIPEXOLE 0.25 MG TABLET PO (20:46)
[2020-06-07 21:39] VITALS: BP 110/59; PULSE 75; RESP 16; TEMP 36.3; O2SAT 98
[2020-06-08 05:24] LABS: Basophils Percent Auto 0.2 % (0.2-1.2); Eosinophils Absolute Auto 0.1 K/mm3 (0-0.3); Eosinophils Percent Auto 2.2 % (0-4.4); Hematocrit 27.8 % (42.0-52.0); Hemoglobin 8.6 g/dL (14.0-18.0); Immature Granulocyte Absolute 0.03 K/mm3 (0.00-0.031); Immature Granulocyte Percent A 0.6 % (0-0.5); Lymphocytes Absolute Auto 1.02 K/mm3 (0.9-3.2); Mean Corpuscular HGB Conc 30.9 g/dl (32-36); Mean Corpuscular Hemoglobin 30.8 pg (26-34); Mean Corpuscular Volume 99.6 fl (80-100); Mean Platelet Volume 9.1 fl (7.4-10.4); Monocytes Absolute Auto 0.5 K/mm3 (0.1-0.6); Monocytes Percent Auto 10.1 % (2.6-8.5); Neutrophils Absolute Auto 3.7 K/mm3 (1.3-6.7); Neutrophils Percent Auto 67.9 % (45.5-73.1); Platelet Count Result 287 k/mm3 (150-375); Red Blood Count 2.79 M/mm3 (4.6-6.20); Red Cell Distribution Width 16.2 % (11.5-14.5); White Blood Count 5.4 K/mm3 (4.5-10.0)
[2020-06-08] MEDS: LEVOTHYROXINE SODIUM 50 MCG TABLET PO (05:38)
[2020-06-08] MEDS: ACETAMINOPHEN 500 MG TABLET 1000 MG PO ×4 (05:38→23:25)
[2020-06-08 05:45] LABS: Anion Gap 3 mmol/L (8-16); Blood Urea Nitrogen 21 mg/dL (9-20); Calcium 8.8 mg/dL (8.4-10.2); Carbon Dioxide 33 mmol/L (22-30); Chloride 103 mmol/L (98-107); Estimated CRCL calculation 60 ml/min; Estimated Glomerular Filt Rate > 60; Glucose 78 mg/dL (75-110); Potassium 4.1 mmol/L (3.4-5.0); Sodium 139 mmol/L (137-145)
[2020-06-08 06:00] VITALS: BP 124/99; PULSE 74; RESP 20; TEMP 36.6; O2SAT 94
[2020-06-08] MEDS: CARBIDOPA/LEVODOPA 25/100 MG TABLET 2 TABLET PO ×3 (08:51→17:01)
[2020-06-08] MEDS: buPROPion HCL XL (24 HR) 150 MG TABCR 300 MG PO (08:51)
[2020-06-08] MEDS: PARoxetine 20 MG TABLET 40 MG PO (08:52)
[2020-06-08] MEDS: APIXABAN 5 MG TABLET PO ×2 (08:52→17:01)
[2020-06-08] MEDS: lamoTRIgine 100 MG TABLET 200 MG PO (08:52)
[2020-06-08] MEDS: PROPRANOLOL HCL 60 MG CAPSULE CR 120 MG PO (08:52)
[2020-06-08] MEDS: SOLIFENACIN 5 MG TABLET 10 MG PO (08:53)
[2020-06-08] MEDS: CHOLECALCIFEROL 1,000 UNITS TABLET 5000 UNITS PO (08:53)
[2020-06-08] MEDS: modafiniL (*CRX) 100 MG TABLET PO (09:06)
--- NOTE | 2020-06-08 10:10 | WPDNEURORHBP ---
Subjective Date/time seen: 06/08/20 10:10 75 years old with left knee displaced angulated distal femur shaft fracture close to the anterior superior margin of the left knee arthroplasty in addition to history of 1. Anxiety 2. Atrial fibrillation for which patient had been on Eliquis and is being continued during the hospitalization, Parkinson's disease, bladder dysfunction, and mechanical single level fall, also hypothyroidism and non rheumatic aortic valve stenosis, REM sleep behavior disorder. He continues to be involved in the physical therapy, his medication have been continued as such particularly Eliquis. Review of Systems Review of Systems: All systems reviewed & are unremarkable except as noted in HPI and below Functional Status Ambulation Ability Ability to Ambulate 10 Feet: Minimum Assistance X 1 Ambulation Assistive Devices: Walker, Wheeled Exam Narrative: Exam Narrative: On examination he is awake alert speech nor dysphasic not dysarthric not dysphonic, follows instructions very well, ear nose throat examination normal, neck is supple, heart regular with no murmur no rhonchi and no crepitation, abdomen is soft, and Neuro unchanged, Objective Data Vital Signs Vital Signs: Vital Signs - 24 hr 06/07/20 14:15 06/07/20 21:39 06/08/20 06:00 Temperature 36.3 C L 36.3 C L 36.6 C Pulse Rate 73 75 74 Respiratory Rate 18 16 20 Blood Pressure 98/46 L 110/59 L 124/99 H Pulse Oximetry 96 98 94 Intake/Output Intake/Output: Intake & Output 06/05/20 06/06/20 06/07/20 06/08/20 23:59 23:59 23:59 23:59 Intake Total 600 840 720 Balance 600 840 720 Meds/Results Medications: Active Medications Generic Name Dose Route Start Last Admin Trade Name Freq PRN Reason Stop Dose Admin Acetaminophen 1,000 mg 06/01/20 18:00 06/08/20 05:38 Acetaminophen 500 Mg Tablet PO 1,000 mg Q6HR [facility] Administration Apixaban 5 mg 05/31/20 21:40 06/08/20 08:52 Apixaban 5 Mg Tablet PO 5 mg BID [facility] Administration Bupropion HCl 300 mg 06/01/20 09:00 06/08/20 08:51 Bupropion Hcl Xl (24 Hr) 150 Mg Tabcr PO 300 mg QAM [facility] Administration Carbidopa/Levodopa 2 tablet 05/31/20 21:40 06/08/20 08:51 Carbidopa/Levodopa 25/100 Mg Tablet PO 2 tablet TID [facility] Administration Donepezil HCl 10 mg 05/31/20 21:45 06/07/20 20:46 Donepezil Hcl 10 Mg Tablet PO 10 mg HS [facility] Administration Lamotrigine 200 mg 06/01/20 09:00 06/08/20 08:52 Lamotrigine 100 Mg Tablet PO 200 mg DAILY [facility] Administration Levothyroxine Sodium 50 mcg 06/01/20 06:30 06/08/20 05:38 Levothyroxine Sodium 50 Mcg Tablet PO 50 mcg DAILY@0630 [facility] Administration Modafinil 100 mg 06/01/20 09:00 06/08/20 09:06 Modafinil (*Crx) 100 Mg Tablet PO 100 mg QAM [facility] Administration Oxycodone HCl 1 mg 05/31/20 21:30 Oxycodone Hcl (*Crx) 5 Mg Tab Ir PO Q6H PRN Pain Rated 7-10 Paroxetine HCl 40 mg 06/01/20 09:00 06/08/20 08:52 Paroxetine 20 Mg Tablet PO 40 mg QAM [facility] Administration Polyethylene Glycol 17 gm 06/04/20 10:37 06/06/20 13:38 Polyethylene Glycol 3350 17 Gm Powd.Pack PO 17 gm DAILY PRN Administration Constipation Pramipexole Dihydrochloride 0.5 mg 05/31/20 21:45 06/07/20 20:46 Pramipexole 0.5 Mg Tablet PO 0.5 mg HS [facility] Administration Pramipexole Dihydrochloride 0.25 mg 05/31/20 21:50 06/07/20 20:46 Pramipexole 0.25 Mg Tablet PO 0.25 mg HS [facility] Administration Pravastatin Sodium 20 mg 05/31/20 21:45 06/07/20 20:46 Pravastatin Sodium 20 Mg Tablet PO 20 mg HS [facility] Administration Propranolol HCl 120 mg 06/01/20 09:00 06/08/20 08:52 Propranolol Hcl 60 Mg Capsule Cr PO 120 mg DAILY [facility] Administration Senna/Docusate Sodium 1 tab 06/01/20 21:00 06/07/20 20:46 Senna/Docusate Sodium Tablet PO Not Given HS [facility] Solifenacin 10 mg 06/01/20 09:00 12/15/20 08:53 Solifenacin 5 Mg Tablet PO 10 mg QAM [facility] Admin
[2020-06-08 14:00] VITALS: BP 96/53; PULSE 71; RESP 16; TEMP 36.4; O2SAT 97
[2020-06-08] MEDS: SENNA/DOCUSATE SODIUM TABLET 1 TAB PO (20:40)
[2020-06-08] MEDS: PRAMIPEXOLE 0.5 MG TABLET PO (20:40)
[2020-06-08] MEDS: PRAVASTATIN SODIUM 20 MG TABLET PO (20:40)
[2020-06-08] MEDS: PRAMIPEXOLE 0.25 MG TABLET PO (20:40)
[2020-06-08] MEDS: DONEPEZIL HCL 10 MG TABLET PO (20:40)
[2020-06-08 21:52] VITALS: BP 113/53; PULSE 73; RESP 20; TEMP 36.4; O2SAT 97
[2020-06-09 05:15] VITALS: BP 126/58; PULSE 79; RESP 12; TEMP 36.3; O2SAT 96
[2020-06-09] MEDS: LEVOTHYROXINE SODIUM 50 MCG TABLET PO (06:01)
[2020-06-09] MEDS: ACETAMINOPHEN 500 MG TABLET 1000 MG PO ×3 (06:01→17:16)
[2020-06-09] MEDS: APIXABAN 5 MG TABLET PO ×2 (08:43→17:16)
[2020-06-09 08:44] VITALS: PULSE 79
[2020-06-09] MEDS: PROPRANOLOL HCL 60 MG CAPSULE CR 120 MG PO (08:44)
[2020-06-09] MEDS: CARBIDOPA/LEVODOPA 25/100 MG TABLET 2 TABLET PO ×3 (08:44→17:15)
[2020-06-09] MEDS: lamoTRIgine 100 MG TABLET 200 MG PO (08:44)
[2020-06-09] MEDS: buPROPion HCL XL (24 HR) 150 MG TABCR 300 MG PO (08:44)
[2020-06-09] MEDS: CHOLECALCIFEROL 1,000 UNITS TABLET 5000 UNITS PO (08:44)
[2020-06-09] MEDS: PARoxetine 20 MG TABLET 40 MG PO (08:45)
[2020-06-09] MEDS: SOLIFENACIN 5 MG TABLET 10 MG PO (08:45)
[2020-06-09] MEDS: modafiniL (*CRX) 100 MG TABLET PO (08:50)
--- NOTE | 2020-06-09 11:19 | PCDIET ---
Nutrition Follow-Up Complete: Nutrition Diagnosis: Suboptimal oral intake related to decreased appetite as evidenced by intake records. Nutrition Goal: Patient to consume 50% of meals and supplements or greater Goal in progress. Average intake since 06/05/20 was 56% of meals which is an improvement. Patient also reporting improved appetite. Growing tired of Ensure Enlive; agreeable to try Frozen Nutritional Treat (300kcal, 9g protein) 1x daily and continue Ensure Enlive (350kcal, 20g protein) only 1x daily. Last recorded weight is 84.3 kg. Recommend obtaining new weight. Bowel Motility: +BM on 06/08/20, per nursing flowsheet. Labs Reviewed: Hgb (8.6), Hct (27.8), BUN (21) Meds Noted: Sinemet, Synthroid, Pravastatin, Senna, Vitamin D Additional Notes: Left hip with dressing. No pressure sores documented. Encouraged patient to continue trying to improve intakes. Will continue to monitor with same goal. Nutrition Monitoring and Evaluation: Follow up in 5 days.
[2020-06-09 13:59] VITALS: BP 109/51; PULSE 79; RESP 20; TEMP 36.5; O2SAT 100
[2020-06-09 20:50] VITALS: PULSE 64; RESP 12; O2SAT 99
[2020-06-09] MEDS: PRAMIPEXOLE 0.5 MG TABLET PO (21:01)
[2020-06-09] MEDS: SENNA/DOCUSATE SODIUM TABLET 1 TAB PO (21:01)
[2020-06-09] MEDS: PRAMIPEXOLE 0.25 MG TABLET PO (21:01)
[2020-06-09] MEDS: DONEPEZIL HCL 10 MG TABLET PO (21:02)
[2020-06-09] MEDS: PRAVASTATIN SODIUM 20 MG TABLET PO (21:03)
[2020-06-09 21:38] VITALS: BP 117/75; PULSE 64; RESP 12; TEMP 35.9; O2SAT 99
[2020-06-10] MEDS: ACETAMINOPHEN 500 MG TABLET 1000 MG PO ×5 (01:00→23:46)
[2020-06-10 05:54] VITALS: BP 136/62; PULSE 70; RESP 12; TEMP 36.2; O2SAT 100
[2020-06-10] MEDS: LEVOTHYROXINE SODIUM 50 MCG TABLET PO (06:05)
[2020-06-10] MEDS: APIXABAN 5 MG TABLET PO ×2 (07:53→17:21)
[2020-06-10] MEDS: lamoTRIgine 100 MG TABLET 200 MG PO (07:53)
[2020-06-10] MEDS: buPROPion HCL XL (24 HR) 150 MG TABCR 300 MG PO (07:53)
[2020-06-10] MEDS: CARBIDOPA/LEVODOPA 25/100 MG TABLET 2 TABLET PO ×3 (07:53→17:21)
[2020-06-10] MEDS: SOLIFENACIN 5 MG TABLET 10 MG PO (07:54)
[2020-06-10] MEDS: PARoxetine 20 MG TABLET 40 MG PO (07:54)
[2020-06-10] MEDS: CHOLECALCIFEROL 1,000 UNITS TABLET 5000 UNITS PO (07:54)
[2020-06-10] MEDS: modafiniL (*CRX) 100 MG TABLET PO (07:55)
[2020-06-10 10:43] VITALS: PULSE 70
[2020-06-10] MEDS: PROPRANOLOL HCL 60 MG CAPSULE CR 120 MG PO (10:43)
[2020-06-10 14:00] VITALS: BP 130/70; PULSE 68; RESP 18; TEMP 36.6; O2SAT 97
--- NOTE | 2020-06-10 15:24 | WPDNEURORHBP ---
Subjective Date/time seen: 06/10/20 15:24 75 years old with left knee displaced angulated distal femur fracture close to the anterior superior margin of the left knee arthroplasty in addition to the history of 1. Anxiety 2. Atrial fibrillation 3. Parkinson's disease4 bladder dysfunction 5. Mechanical single level fall 6. Hypothyroidism 7 non rheumatic aortic valve stenosis 8. REM sleep disorder Review of Systems Review of Systems: All systems reviewed & are unremarkable except as noted in HPI and below Functional Status Ambulation Ability Ability to Ambulate 10 Feet: Minimum Assistance X 1 Ambulation Assistive Devices: Walker, Wheeled Exam Narrative: Exam Narrative: examination revealed him to be awake alert cooperative in no obvious acute distress. His speech not dysphasic no dysarthric not dysphonic. Neck movements are non restricted. No cervical bruit. Heart regular. Lungs clear with no rhonchi or crepitations. Abdomen is soft nontender. Neurological examination revealed him to be awake alert aware being on the rehab floor speech nor dysphasic no dysarthric not dysphonic, extraocular movements are full, [place]terchak tanner are full in all 4 quadrants, facial sensation intact, symmetrical, tongue in the oral cavity midline, motor examination revealed him to have no drift of 1 or other side of the upper extremities against gravity, reflexes symmetrical, plantars are downgoing. He has slight discomfort when I move the left lower extremity where he had the surgery Objective Data Vital Signs Vital Signs: Vital Signs - 24 hr 06/09/20 20:50 06/09/20 21:38 06/10/20 05:54 Temperature 35.9 C L 36.2 C L Pulse Rate 64 64 70 Respiratory Rate 12 12 12 Blood Pressure 117/75 136/62 Pulse Oximetry 99 99 100 06/10/20 10:43 06/10/20 14:00 Temperature 36.6 C Pulse Rate 70 68 Respiratory Rate 18 Blood Pressure 130/70 Pulse Oximetry 97 Intake/Output Intake/Output: Intake & Output 06/07/20 06/08/20 06/09/20 06/10/20 23:59 23:59 23:59 23:59 Intake Total 720 600 435 480 Balance 720 600 435 480 Meds/Results Medications: Active Medications Generic Name Dose Route Start Last Admin Trade Name Freq PRN Reason Stop Dose Admin Acetaminophen 1,000 mg 06/01/20 18:00 06/10/20 12:07 Acetaminophen 500 Mg Tablet PO 1,000 mg Q6HR [facility] Administration Apixaban 5 mg 05/31/20 21:40 06/10/20 07:53 Apixaban 5 Mg Tablet PO 5 mg BID [facility] Administration Bupropion HCl 300 mg 06/01/20 09:00 06/10/20 07:53 Bupropion Hcl Xl (24 Hr) 150 Mg Tabcr PO 300 mg QAM [facility] Administration Carbidopa/Levodopa 2 tablet 05/31/20 21:40 06/10/20 12:07 Carbidopa/Levodopa 25/100 Mg Tablet PO 2 tablet TID [facility] Administration Donepezil HCl 10 mg 05/31/20 21:45 06/09/20 21:02 Donepezil Hcl 10 Mg Tablet PO 10 mg HS [facility] Administration Lamotrigine 200 mg 06/01/20 09:00 06/10/20 07:53 Lamotrigine 100 Mg Tablet PO 200 mg DAILY [facility] Administration Levothyroxine Sodium 50 mcg 06/01/20 06:30 06/10/20 06:05 Levothyroxine Sodium 50 Mcg Tablet PO 50 mcg DAILY@0630 [facility] Administration Modafinil 100 mg 06/01/20 09:00 06/10/20 07:55 Modafinil (*Crx) 100 Mg Tablet PO 100 mg QAM [facility] Administration Oxycodone HCl 1 mg 05/31/20 21:30 Oxycodone Hcl (*Crx) 5 Mg Tab Ir PO Q6H PRN Pain Rated 7-10 Paroxetine HCl 40 mg 06/01/20 09:00 06/10/20 07:54 Paroxetine 20 Mg Tablet PO 40 mg QAM [facility] Administration Polyethylene Glycol 17 gm 06/04/20 10:37 06/06/20 13:38 Polyethylene Glycol 3350 17 Gm Powd.Pack PO 17 gm DAILY PRN Administration Constipation Pramipexole Dihydrochloride 0.5 mg 05/31/20 21:45 06/09/20 21:01 Pramipexole 0.5 Mg Tablet PO 0.5 mg HS [facility] Administration Pramipexole Dihydrochloride 0.25 mg 05/31/20 21:50 06/09/20 21:01 Pramipexole 0.25 Mg Tablet PO 0.25 mg HS [facility] Administration Pravastatin Sodium 20 mg 05/31/20 2
[2020-06-10] MEDS: PRAMIPEXOLE 0.5 MG TABLET PO (19:59)
[2020-06-10] MEDS: DONEPEZIL HCL 10 MG TABLET PO (19:59)
[2020-06-10] MEDS: SENNA/DOCUSATE SODIUM TABLET 1 TAB PO (19:59)
[2020-06-10] MEDS: PRAVASTATIN SODIUM 20 MG TABLET PO (20:00)
[2020-06-10] MEDS: PRAMIPEXOLE 0.25 MG TABLET PO (20:04)
[2020-06-10 22:00] VITALS: BP 106/55; PULSE 79; RESP 20; TEMP 36.7; O2SAT 99
[2020-06-11] MEDS: ACETAMINOPHEN 500 MG TABLET 1000 MG PO ×3 (05:30→17:33)
[2020-06-11] MEDS: LEVOTHYROXINE SODIUM 50 MCG TABLET PO (05:30)
[2020-06-11 06:00] VITALS: BP 131/63; PULSE 91; RESP 20; TEMP 36.3; O2SAT 96
[2020-06-11] MEDS: buPROPion HCL XL (24 HR) 150 MG TABCR 300 MG PO (09:18)
[2020-06-11] MEDS: APIXABAN 5 MG TABLET PO ×2 (09:18→17:34)
[2020-06-11] MEDS: CARBIDOPA/LEVODOPA 25/100 MG TABLET 2 TABLET PO ×3 (09:18→17:33)
[2020-06-11] MEDS: CHOLECALCIFEROL 1,000 UNITS TABLET 5000 UNITS PO (09:19)
[2020-06-11] MEDS: lamoTRIgine 100 MG TABLET 200 MG PO (09:19)
[2020-06-11] MEDS: PARoxetine 20 MG TABLET 40 MG PO (09:19)
[2020-06-11] MEDS: SOLIFENACIN 5 MG TABLET 10 MG PO (09:20)
[2020-06-11 09:22] VITALS: PULSE 77
[2020-06-11] MEDS: PROPRANOLOL HCL 60 MG CAPSULE CR 120 MG PO (09:22)
[2020-06-11] MEDS: modafiniL (*CRX) 100 MG TABLET PO (09:22)
--- NOTE | 2020-06-11 13:58 | PCDIET ---
Nutrition Follow-Up Complete: Nutrition Diagnosis: Suboptimal oral intake related to decreased appetite as evidenced by intake records. Nutrition Goal: Patient to consume 50% of meals and supplements or greater Goal met and continuing to progress. Patient reports continued improvement in appetite with average intake of 70% since 06/09/20. Patient does not recall getting Frozen Nutritional Treat; clarified order with dietary department. Recommend continuing frozen treat daily and Ensure Enlive daily. Last recorded weight is 84.3 kg. Recommend obtaining new weight. Bowel Motility: Last BM on 06/08/20. Labs Reviewed: Hgb (8.6), Hct (27.8), BUN (21) Meds Noted: Sinemet, Synthroid, Miralax, Pravastatin, Senokot, Vitamin D Additional Notes: Dressing to left hip. No other skin breakdown documented. Will continue to monitor with same goal. Nutrition Monitoring and Evaluation: Follow up in 5 days.
[2020-06-11 14:00] VITALS: BP 104/50; PULSE 71; RESP 16; TEMP 36.1; O2SAT 94
[2020-06-11] MEDS: PRAMIPEXOLE 0.5 MG TABLET PO (20:58)
[2020-06-11] MEDS: PRAVASTATIN SODIUM 20 MG TABLET PO (20:58)
[2020-06-11] MEDS: PRAMIPEXOLE 0.25 MG TABLET PO (20:58)
[2020-06-11] MEDS: SENNA/DOCUSATE SODIUM TABLET 1 TAB PO (20:58)
[2020-06-11] MEDS: DONEPEZIL HCL 10 MG TABLET PO (20:59)
[2020-06-11 21:36] VITALS: BP 111/55; PULSE 83; RESP 20; TEMP 36.2; O2SAT 97
[2020-06-12] MEDS: LEVOTHYROXINE SODIUM 50 MCG TABLET PO (05:35)
[2020-06-12] MEDS: ACETAMINOPHEN 500 MG TABLET 1000 MG PO ×4 (05:35→23:30)
[2020-06-12 05:40] VITALS: BP 127/71; PULSE 85; RESP 20; TEMP 36.4; O2SAT 93
[2020-06-12 08:00] VITALS: PULSE 85; RESP 20; O2SAT 93
[2020-06-12] MEDS: buPROPion HCL XL (24 HR) 150 MG TABCR 300 MG PO (09:08)
[2020-06-12] MEDS: lamoTRIgine 100 MG TABLET 200 MG PO (09:08)
[2020-06-12] MEDS: APIXABAN 5 MG TABLET PO ×2 (09:08→17:46)
[2020-06-12] MEDS: CHOLECALCIFEROL 1,000 UNITS TABLET 5000 UNITS PO (09:08)
[2020-06-12] MEDS: CARBIDOPA/LEVODOPA 25/100 MG TABLET 2 TABLET PO ×3 (09:08→17:46)
[2020-06-12] MEDS: PARoxetine 20 MG TABLET 40 MG PO (09:08)
[2020-06-12 09:09] VITALS: PULSE 85
[2020-06-12] MEDS: PROPRANOLOL HCL 60 MG CAPSULE CR 120 MG PO (09:09)
[2020-06-12] MEDS: SOLIFENACIN 5 MG TABLET 10 MG PO (09:09)
[2020-06-12] MEDS: modafiniL (*CRX) 100 MG TABLET PO (09:13)
[2020-06-12 14:00] VITALS: BP 136/68; PULSE 84; RESP 20; TEMP 36.7; O2SAT 96
--- NOTE | 2020-06-12 15:09 | WPDNEURORHBP ---
Subjective Date/time seen: 06/12/20 15:09 75 years old with history of left knee displaced angulated distal femur fracture closer to the anterior superior margin of the left knee arthroplasty in addition to 1. Anxiety 2. Atrial fibrillation 3. Parkinson's disease 4. Bladder dysfunction 5. Hypothyroidism 6. Non rheumatic aortic valve stenosis at 7 REM sleep disorder 8. Mechanical sing the level fall Review of Systems Review of Systems: All systems reviewed & are unremarkable except as noted in HPI and below Functional Status Ambulation Ability Ability to Ambulate 10 Feet: Contact Guard Ability to Ambulate 50 Feet With 2 Turns: Contact Guard Ambulation Assistive Devices: Walker, Wheeled Transfers Ability Ability to Transfer In/Out of Chair: Moderate Assistance X 1 Exam Narrative: Exam Narrative: awake alert follows instructions very well his speech not dysphasic no dysarthric but not very spontaneous and somewhat of low volume. Next supple. Heart regular. Lungs clear. Abdomen is soft nontender normal bowel sounds. Neurological examination unchanged Objective Data Vital Signs Vital Signs: Vital Signs - 24 hr 06/11/20 21:36 06/12/20 05:40 06/12/20 08:00 Temperature 36.2 C L 36.4 C Pulse Rate 83 85 85 Respiratory Rate 20 20 20 Blood Pressure 111/55 L 127/71 Pulse Oximetry 97 93 93 06/12/20 09:09 06/12/20 14:00 Temperature 36.7 C Pulse Rate 85 84 Respiratory Rate 20 Blood Pressure 136/68 Pulse Oximetry 96 Intake/Output Intake/Output: Intake & Output 06/09/20 06/10/20 06/11/20 06/12/20 23:59 23:59 23:59 23:59 Intake Total 435 720 720 480 Balance 435 720 720 480 Meds/Results Medications: Active Medications Generic Name Dose Route Start Last Admin Trade Name Freq PRN Reason Stop Dose Admin Acetaminophen 1,000 mg 06/01/20 18:00 06/12/20 13:26 Acetaminophen 500 Mg Tablet PO 1,000 mg Q6HR [facility] Administration Apixaban 5 mg 05/31/20 21:40 06/12/20 09:08 Apixaban 5 Mg Tablet PO 5 mg BID [facility] Administration Bupropion HCl 300 mg 06/01/20 09:00 06/12/20 09:08 Bupropion Hcl Xl (24 Hr) 150 Mg Tabcr PO 300 mg QAM [facility] Administration Carbidopa/Levodopa 2 tablet 05/31/20 21:40 06/12/20 13:26 Carbidopa/Levodopa 25/100 Mg Tablet PO 2 tablet TID [facility] Administration Donepezil HCl 10 mg 05/31/20 21:45 06/11/20 20:59 Donepezil Hcl 10 Mg Tablet PO 10 mg HS [facility] Administration Lamotrigine 200 mg 06/01/20 09:00 06/12/20 09:08 Lamotrigine 100 Mg Tablet PO 200 mg DAILY [facility] Administration Levothyroxine Sodium 50 mcg 06/01/20 06:30 06/12/20 05:35 Levothyroxine Sodium 50 Mcg Tablet PO 50 mcg DAILY@0630 [facility] Administration Modafinil 100 mg 06/01/20 09:00 06/12/20 09:13 Modafinil (*Crx) 100 Mg Tablet PO 100 mg QAM [facility] Administration Paroxetine HCl 40 mg 06/01/20 09:00 06/12/20 09:08 Paroxetine 20 Mg Tablet PO 40 mg QAM [facility] Administration Polyethylene Glycol 17 gm 06/04/20 10:37 06/06/20 13:38 Polyethylene Glycol 3350 17 Gm Powd.Pack PO 17 gm DAILY PRN Administration Constipation Pramipexole Dihydrochloride 0.5 mg 05/31/20 21:45 06/11/20 20:58 Pramipexole 0.5 Mg Tablet PO 0.5 mg HS [facility] Administration Pramipexole Dihydrochloride 0.25 mg 05/31/20 21:50 06/11/20 20:58 Pramipexole 0.25 Mg Tablet PO 0.25 mg HS [facility] Administration Pravastatin Sodium 20 mg 05/31/20 21:45 06/11/20 20:58 Pravastatin Sodium 20 Mg Tablet PO 20 mg HS [facility] Administration Propranolol HCl 120 mg 06/10/20 09:00 06/12/20 09:09 Propranolol Hcl 60 Mg Capsule Cr PO 120 mg DAILY [facility] Administration Senna/Docusate Sodium 1 tab 06/01/20 21:00 06/11/20 20:58 Senna/Docusate Sodium Tablet PO 1 tab HS [facility] Administration Solifenacin 10 mg 06/01/20 09:00 06/12/20 09:09 Solifenacin 5 Mg Tablet PO 10 mg QAM [facility] Administration Vitamin D 5,000 units 06/01/20 09:00 06/12/20 09:08
[2020-06-12 20:15] VITALS: BP 106/50; PULSE 72; RESP 16; TEMP 36.8; O2SAT 99
[2020-06-12] MEDS: PRAMIPEXOLE 0.5 MG TABLET PO (20:17)
[2020-06-12] MEDS: DONEPEZIL HCL 10 MG TABLET PO (20:17)
[2020-06-12] MEDS: PRAMIPEXOLE 0.25 MG TABLET PO (20:18)
[2020-06-12] MEDS: PRAVASTATIN SODIUM 20 MG TABLET PO (20:18)
[2020-06-13] MEDS: ACETAMINOPHEN 500 MG TABLET 1000 MG PO ×4 (05:34→22:56)
[2020-06-13] MEDS: LEVOTHYROXINE SODIUM 50 MCG TABLET PO (05:34)
[2020-06-13 05:46] VITALS: BP 116/54; PULSE 78; RESP 20; TEMP 36.4; O2SAT 96
[2020-06-13 08:00] VITALS: PULSE 78; RESP 20; O2SAT 96
[2020-06-13] MEDS: CHOLECALCIFEROL 1,000 UNITS TABLET 5000 UNITS PO (08:46)
[2020-06-13] MEDS: CARBIDOPA/LEVODOPA 25/100 MG TABLET 2 TABLET PO ×3 (08:46→17:06)
[2020-06-13] MEDS: buPROPion HCL XL (24 HR) 150 MG TABCR 300 MG PO (08:47)
[2020-06-13] MEDS: SOLIFENACIN 5 MG TABLET 10 MG PO (08:47)
[2020-06-13] MEDS: lamoTRIgine 100 MG TABLET 200 MG PO (08:47)
[2020-06-13 08:48] VITALS: PULSE 78
[2020-06-13] MEDS: PARoxetine 20 MG TABLET 40 MG PO (08:48)
[2020-06-13] MEDS: APIXABAN 5 MG TABLET PO ×2 (08:48→17:06)
[2020-06-13] MEDS: PROPRANOLOL HCL 60 MG CAPSULE CR 120 MG PO (08:48)
[2020-06-13] MEDS: modafiniL (*CRX) 100 MG TABLET PO (08:51)
[2020-06-13 14:00] VITALS: BP 115/64; PULSE 92; RESP 18; TEMP 36.2; O2SAT 98
[2020-06-13 21:00] VITALS: BP 117/61; PULSE 79; RESP 12; TEMP 36.2; O2SAT 98
[2020-06-13] MEDS: DONEPEZIL HCL 10 MG TABLET PO (21:01)
[2020-06-13] MEDS: PRAMIPEXOLE 0.5 MG TABLET PO (21:01)
[2020-06-13] MEDS: PRAMIPEXOLE 0.25 MG TABLET PO (21:01)
[2020-06-13] MEDS: PRAVASTATIN SODIUM 20 MG TABLET PO (21:02)
[2020-06-14] MEDS: ACETAMINOPHEN 500 MG TABLET 1000 MG PO ×3 (05:32→16:56)
[2020-06-14] MEDS: LEVOTHYROXINE SODIUM 50 MCG TABLET PO (05:32)
[2020-06-14 06:00] VITALS: BP 146/72; PULSE 91; RESP 14; TEMP 36.4; O2SAT 100
[2020-06-14] MEDS: CHOLECALCIFEROL 1,000 UNITS TABLET 5000 UNITS PO (08:46)
[2020-06-14] MEDS: APIXABAN 5 MG TABLET PO ×2 (08:46→16:56)
[2020-06-14] MEDS: PARoxetine 20 MG TABLET 40 MG PO (08:47)
[2020-06-14] MEDS: CARBIDOPA/LEVODOPA 25/100 MG TABLET 2 TABLET PO ×3 (08:47→16:56)
[2020-06-14] MEDS: lamoTRIgine 100 MG TABLET 200 MG PO (08:47)
[2020-06-14] MEDS: buPROPion HCL XL (24 HR) 150 MG TABCR 300 MG PO (08:47)
[2020-06-14 08:48] VITALS: PULSE 64
[2020-06-14] MEDS: PROPRANOLOL HCL 60 MG CAPSULE CR 120 MG PO (08:48)
[2020-06-14] MEDS: SOLIFENACIN 5 MG TABLET 10 MG PO (08:48)
[2020-06-14] MEDS: modafiniL (*CRX) 100 MG TABLET PO (08:52)
--- NOTE | 2020-06-14 11:23 | WPDNEURORHBP ---
Subjective Date/time seen: 06/14/20 11:23 75 years old with history of left knee displaced angulated distal femur fracture closer to the anterior superior margin of the left knee arthroplasty in addition to the ongoing history of 1. Anxiety 2. Atrial fibrillation 3. Parkinson disease 4. Bladder dysfunction 5. Hypothyroidism 6. Non rheumatic aortic valve stenosis 7. REM sleep disorder. Review of Systems Review of Systems: All systems reviewed & are unremarkable except as noted in HPI and below Functional Status Ambulation Ability Ability to Ambulate 10 Feet: Contact Guard Ability to Ambulate 50 Feet With 2 Turns: Contact Guard Ambulation Assistive Devices: Walker, Wheeled Transfers Ability Ability to Transfer In/Out of Chair: Moderate Assistance X 1 Exam Narrative: Exam Narrative: Has been involved in the physical therapy ambulating up to 50ft with 2 turns using the contact guard there is wheeled walker and able to transfer in and out of chair with moderate assistance of 1. On examination awake alert follows instructions very well. His speech is not dysphasic no dysarthric but is of low volume. Affect is normal pupils round regular reacting to light equally. Visual tanner are normal. Face symmetrical. Tongue in the oral cavity. Motor examination reveals him to have decreased strength but no focal motor deficit and he does not complain of any pain. Objective Data Vital Signs Vital Signs: Vital Signs - 24 hr 06/13/20 14:00 06/13/20 21:00 06/14/20 06:00 Temperature 36.2 C L 36.2 C L 36.4 C Pulse Rate 92 79 91 Respiratory Rate 18 12 14 Blood Pressure 115/64 117/61 146/72 H Pulse Oximetry 98 98 100 06/14/20 08:48 Temperature Pulse Rate 64 Respiratory Rate Blood Pressure Pulse Oximetry Intake/Output Intake/Output: Intake & Output 06/11/20 06/12/20 06/13/20 06/14/20 23:59 23:59 23:59 23:59 Intake Total 720 720 720 Balance 720 720 720 Meds/Results Medications: Active Medications Generic Name Dose Route Start Last Admin Trade Name Freq PRN Reason Stop Dose Admin Acetaminophen 1,000 mg 06/01/20 18:00 06/14/20 10:44 Acetaminophen 500 Mg Tablet PO 1,000 mg Q6HR [facility] Administration Apixaban 5 mg 05/31/20 21:40 06/14/20 08:46 Apixaban 5 Mg Tablet PO 5 mg BID [facility] Administration Bupropion HCl 300 mg 06/01/20 09:00 06/14/20 08:47 Bupropion Hcl Xl (24 Hr) 150 Mg Tabcr PO 300 mg QAM [facility] Administration Carbidopa/Levodopa 2 tablet 05/31/20 21:40 06/14/20 08:47 Carbidopa/Levodopa 25/100 Mg Tablet PO 2 tablet TID [facility] Administration Donepezil HCl 10 mg 05/31/20 21:45 06/13/20 21:01 Donepezil Hcl 10 Mg Tablet PO 10 mg HS [facility] Administration Lamotrigine 200 mg 06/01/20 09:00 06/14/20 08:47 Lamotrigine 100 Mg Tablet PO 200 mg DAILY [facility] Administration Levothyroxine Sodium 50 mcg 06/01/20 06:30 06/14/20 05:32 Levothyroxine Sodium 50 Mcg Tablet PO 50 mcg DAILY@0630 [facility] Administration Modafinil 100 mg 06/01/20 09:00 06/14/20 08:52 Modafinil (*Crx) 100 Mg Tablet PO 100 mg QAM [facility] Administration Paroxetine HCl 40 mg 06/01/20 09:00 06/14/20 08:47 Paroxetine 20 Mg Tablet PO 40 mg QAM [facility] Administration Polyethylene Glycol 17 gm 06/04/20 10:37 06/06/20 13:38 Polyethylene Glycol 3350 17 Gm Powd.Pack PO 17 gm DAILY PRN Administration Constipation Pramipexole Dihydrochloride 0.5 mg 05/31/20 21:45 06/13/20 21:01 Pramipexole 0.5 Mg Tablet PO 0.5 mg HS [facility] Administration Pramipexole Dihydrochloride 0.25 mg 05/31/20 21:50 06/13/20 21:01 Pramipexole 0.25 Mg Tablet PO 0.25 mg HS [facility] Administration Pravastatin Sodium 20 mg 05/31/20 21:45 06/13/20 21:02 Pravastatin Sodium 20 Mg Tablet PO 20 mg HS [facility] Administration Propranolol HCl 120 mg 06/10/20 09:00 06/14/20 08:48 Propranolol Hcl 60 Mg Capsule Cr PO 120 mg DAILY [facility] Administration Senna/Docusate Sodium 1 t
[2020-06-14 14:00] VITALS: BP 105/47; PULSE 73; RESP 22; TEMP 36.2; O2SAT 95
[2020-06-14] MEDS: SENNA/DOCUSATE SODIUM TABLET 1 TAB PO (20:01)
[2020-06-14] MEDS: PRAMIPEXOLE 0.25 MG TABLET PO (20:03)
[2020-06-14] MEDS: PRAMIPEXOLE 0.5 MG TABLET PO (20:04)
[2020-06-14] MEDS: DONEPEZIL HCL 10 MG TABLET PO (20:05)
[2020-06-14] MEDS: PRAVASTATIN SODIUM 20 MG TABLET PO (20:05)
[2020-06-14 20:52] VITALS: BP 100/59; PULSE 87; RESP 18; TEMP 36.2; O2SAT 96
[2020-06-15] MEDS: ACETAMINOPHEN 500 MG TABLET 1000 MG PO ×3 (01:02→13:23)
[2020-06-15] MEDS: oxyCODONE HCL (*CRX) 5 MG TAB IR PO (01:26)
[2020-06-15 04:57] LABS: Basophils Percent Auto 0.4 % (0.2-1.2); Eosinophils Absolute Auto 0.1 K/mm3 (0-0.3); Eosinophils Percent Auto 2.1 % (0-4.4); Hematocrit 28.5 % (42.0-52.0); Hemoglobin 8.6 g/dL (14.0-18.0); Immature Granulocyte Absolute 0.01 K/mm3 (0.00-0.031); Immature Granulocyte Percent A 0.2 % (0-0.5); Lymphocytes Absolute Auto 1.11 K/mm3 (0.9-3.2); Mean Corpuscular HGB Conc 30.2 g/dl (32-36); Mean Corpuscular Volume 102.9 fl (80-100); Mean Platelet Volume 8.8 fl (7.4-10.4); Monocytes Absolute Auto 0.6 K/mm3 (0.1-0.6); Monocytes Percent Auto 11.6 % (2.6-8.5); Neutrophils Percent Auto 62.7 % (45.5-73.1); Platelet Count Result 207 k/mm3 (150-375); Red Blood Count 2.77 M/mm3 (4.6-6.20); Red Cell Distribution Width 16.8 % (11.5-14.5); White Blood Count 4.8 K/mm3 (4.5-10.0)
[2020-06-15 05:12] LABS: Anion Gap 3 mmol/L (8-16); Blood Urea Nitrogen 25 mg/dL (9-20); Calcium 9.1 mg/dL (8.4-10.2); Carbon Dioxide 33 mmol/L (22-30); Chloride 102 mmol/L (98-107); Estimated CRCL calculation 60 ml/min; Estimated Glomerular Filt Rate > 60; Glucose 84 mg/dL (75-110); Potassium 4.4 mmol/L (3.4-5.0); Sodium 138 mmol/L (137-145)
[2020-06-15 05:25] VITALS: BP 118/56; PULSE 86; RESP 20; TEMP 36.4; O2SAT 98
[2020-06-15] MEDS: LEVOTHYROXINE SODIUM 50 MCG TABLET PO (06:07)
[2020-06-15] MEDS: buPROPion HCL XL (24 HR) 150 MG TABCR 300 MG PO (10:37)
[2020-06-15] MEDS: APIXABAN 5 MG TABLET PO (10:37)
[2020-06-15] MEDS: CARBIDOPA/LEVODOPA 25/100 MG TABLET 2 TABLET PO ×2 (10:37→13:23)
[2020-06-15] MEDS: CHOLECALCIFEROL 1,000 UNITS TABLET 5000 UNITS PO (10:38)
[2020-06-15] MEDS: lamoTRIgine 100 MG TABLET 200 MG PO (10:38)
[2020-06-15] MEDS: PARoxetine 20 MG TABLET 40 MG PO (10:39)
[2020-06-15] MEDS: SOLIFENACIN 5 MG TABLET 10 MG PO (10:40)
[2020-06-15 12:37] VITALS: PULSE 86
[2020-06-15] MEDS: modafiniL (*CRX) 100 MG TABLET PO (12:37)
[2020-06-15] MEDS: PROPRANOLOL HCL 60 MG CAPSULE CR 120 MG PO (12:37)
[2020-06-15 14:00] VITALS: BP 132/59; PULSE 86; RESP 20; TEMP 36.4; O2SAT 97
--- NOTE | 2020-06-17 12:07 | PM.DS ---
DS: Admitting Diagnosis Admitting Diagnosis Admitting Diagnosis: ORIF left lower extremity with impairment category of orthopedic DS: Summary Hospital Course Hospital Course: stable no falls Time Spent with Patient Time attestation: Total time spent providing and/or coordinating discharge services: Exam Narrative: Exam Narrative: ADMISSION FUNCTION:75 years old right-handed male admitted [facility] with rehab impairment category of orthopedic there is lower extremity fracture in addition to the past medical history of 1. Anxiety 2. Arthritis 3. Atrial fibrillation for which he was on Eliquis 4. Parkinson's disease 5. Madrigal bladder dysfunction and 6. Bilateral total knee arthroplasties 7. History of fall landing on his knee resulting in the left distal femur fracture with fracture line in close proximity to the anterior superior margin of the left knee arthroplasty . 8. No history of COVID. At the time of admission his evaluation revealed that he he was in need of Eating setup Toileting Hygiene substantial and maximal assistance Shower/Bathing substantial and maximal assistance Upper Body Dressing partial assistance Lower Body Dressing substantial and maximal assistance Donning/[place] Footwear dependent Rolling Left and Right not applicable Sit to Lying not applicable Lying to Sitting not applicable Sit to Stand substantial and maximal assistance Bed to Chair Transfers substantial and maximal assistance Toilet Transfers substantial and maximal assist Car Transfers dependent Walking 10' not applicable Walking 50' with Two Turns not applicable Walking 150' not applicable Curb or Step not applicable 4 Steps not applicable 12 Steps not applicable Picking Up Object not applicable [Wheelchair Mobility 50'] partial furniture removalist's assistant [Wheelchair Mobility 150'] not applicable GOALS: Eating [INDEPENDENT] Oral Care [INDEPENDENT] Toileting Hygiene supervision Shower/Bathing supervision Upper Body Dressing supervision Lower Body Dressing supervision Donning/[place] Footwear supervision Rolling Left and Right [INDEPENDENT] Sit to Lying independent Lying to Sitting [INDEPENDENT] Sit to Stand supervision Bed to Chair Transfers [ super Toilet Transfers supervision Car Transfers supervision Walking 10' supervision Walking 50' with Two Turns supervision Walking 150' not applicable Curb or Step partial furniture removalist's assistant 4 Steps partial assist 12 Steps partial assistance Picking Up Object [INDEPENDENT] [Wheelchair Mobility 50'] [INDEPENDENT] [Wheelchair Mobility 150'] [INDEPENDENT] DISCHARGE PERFORMANCE: Eating set up or clean up Oral Care set up or clean up Toileting Hygiene supervision Shower/Bathing partial or moderate assistance Upper Body Dressing partial or moderate assistance Lower Body Dressing substantial or maximal assistance Donning/[place] Footwear partial or moderate assistance Rolling Left and Right independent Sit to Lying supervision Lying to Sitting supervision Sit to Stand partial or moderate assistance Bed to Chair Transfers partial or moderate assist Toilet Transfers partial or moderate assistance Car Transfers partial or moderate assistance Walking 10' supervision Walking 50' with Two Turns [ supervision Walking 150' not applicable Curb or Step not applicable 4 Steps not applicable 12 Steps not applicable Picking Up Object super [Wheelchair Mobility 50'] [INDEPENDENT] [Wheelchair Mobility 150'] [INDEPENDENT] at the time of discharge patient was able to ambulate with a wheeled walker assistive device up to 50ft with 2 turns in contact guard in addition to able to transfer in our off to chair with moderate assistance of 1 his examination revealed him to be awake alert cooperative speech nor dysphasic no dysarthric normal affect cranial examination was normal motor examination was symmetrical reflex was symmetrical plantars were downgoing heart regular with no
== END 2020-06-15 16:50 | disposition home health service (06) | DRG 561 ==
PROVIDERS: Admitting Provider Psychiatry & Neurology Neurology; PCP Internal Medicine; Visit Provider Psychiatry & Neurology Neurology
DX: S72.492D Other fracture of lower end of left femur, subsequent encounter for closed fracture with routine healing (principal); W19.XXXD Unspecified fall, subsequent encounter; Z96.653 Presence of artificial knee joint, bilateral; D64.9 Anemia, unspecified; F41.9 Anxiety disorder, unspecified; E03.9 Hypothyroidism, unspecified; E78.5 Hyperlipidemia, unspecified; G20 Parkinson's disease; I48.91 Unspecified atrial fibrillation; I10 Essential (primary) hypertension; I35.0 Nonrheumatic aortic (valve) stenosis; J45.909 Unspecified asthma, uncomplicated; M24.671 Ankylosis, right ankle; M15.9 Polyosteoarthritis, unspecified; M25.462 Effusion, left knee; N32.81 Overactive bladder; R26.0 Ataxic gait; R32 Unspecified urinary incontinence; Z79.01 Long term (current) use of anticoagulants; Z86.73 Personal history of transient ischemic attack (TIA), and cerebral infarction without residual deficits; Z86.718 Personal history of other venous thrombosis and embolism; Z87.891 Personal history of nicotine dependence
CPT/HCPCS: 36415; 73600; 73650; 80048; 85025; 97110; 97116; 97162; 97166; 97530; 97535; 97542; A9270